=== PATIENT | female | born 1945 | race Caucasian/White ===

== ENCOUNTER 2019-12-26 17:39 | Inpatient (IN) ==
[2019-12-26] MEDS ORDERED: DUONEB (A & A) INH ONE (18:21)
[2019-12-26 18:57] LABS: BASO# 0.04 X1000 (0.0-0.2); BASO% 0.4 % (0.0-0.8); EOS# 1.53 X1000 (0.0-0.7); EOS% 17.2 % (0.0-10.0); HEMATOCRIT 30.7 % (37.0-47.0); HEMOGLOBIN 9.4 g/dL (12.0-16.0); IMM GRAN# 0.04 X1000 (0.0-0.04); IMM GRAN% 0.4 % (0.0-0.5); LYMPH# 1.84 X1000 (1.2-3.4); LYMPH% 20.6 % (20.5-51.1); MCH 29.2 PG (27-31); MCHC 30.6 g/dL (33-37); MCV 95.3 FL (81-99); MONO# 0.71 X1000 (0.11-0.59); NEUT# 4.76 X1000 (1.4-6.5); NEUT% 53.4 % (42.2-75.2); PLT 349 X1000 (130-400); RBC 3.22 XMIL (4.2-5.4); RDW 13.9 % (11.5-14.5); WBC 8.92 X1000 (4.8-10.8)
[2019-12-26 19:03] LABS: ALB/GLOB RATIO 1.5; ALBUMIN 3.3 g/dL (3.5-5.0); CALCIUM 9.3 mg/dL (8.8-10.2); POTASSIUM 4.2 mmol/L (3.5-5.1); TOTAL BILIRUBIN 0.33 mg/dL (0.20-1.00); TOTAL PROTEIN 5.5 g/dL (6.3-8.3)
--- NOTE | 2019-12-26 19:03 | PROVIDER DOCUMENTATION ---
This chart was entered by Laura Lai Scribe, acting as scribe for Azar Mack MD. HPI-Female /OB/Breast - General Source: reports: patient - History of Present Illness-Female /OB Does patient report she is ?: No Location of complaint: reports: urethral (LLQ of abd), other Quality of Pain: reports: sharp Severity in ED: reports: mild Onset/Duration: reports: 2 days ago Timing: reports: still present Context/Activities at Onset: reports: other (hospitalized at [facility] recently) Vaginal Symptoms: reports: no symptoms Vaginal Bleeding Amount: None Urinary Symptoms: reports: anuria Related Symptoms: reports: no symptoms Leakage of Fluid: none Sexual intercourse history: reports: Not Active Contraception: reports: none Modifying Factors: improves with: nothing Associated Symptoms: reports: denies symptoms Similar Symptoms Previously?: Yes Recently seen or treated by another doctor?: Yes <Azar Mack - Last Filed: 12/26/19 19:03> <Anupama Wasserman - Last Filed: 12/26/19 20:28> - General Chief Complaint: Flank Pain Stated Complaint: NO URINATION x2 DAYS KIDNEY STONE Time Seen by Provider: 12/26/19 18:08 Allergies/Adverse Reactions: Patient Allergies Allergy/AdvReac Type Severity Reaction Status Date / Time No Known Allergies Allergy Verified 12/26/19 18:47 Home Medications: Home Medication List Medication Instructions Recorded Confirmed Last Taken Type Alprazolam [Xanax] 0.25 mg PO QHS 12/28/15 12/26/19 11/07/17 16:00 History Levothyroxine [Synthroid] 75 microgm PO DAILY 12/28/15 12/26/19 11/08/17 08:00 History Albuterol Sulfate [Proair Hfa] 8.5 gm IH TID 11/07/17 12/26/19 11/07/17 16:00 History Ipratropium/Albuterol Sulfate 3 ml INHALATION Q4H 12/26/19 12/26/19 12/26/19 14:30 History [Iprat-Albut 0.5-3(2.5) mg/3 ml] Midodrine HCl 2.5 mg PO DAILY 12/26/19 12/26/19 Unknown History Sertraline [Zoloft] 25 mg PO DAILY 12/26/19 12/26/19 Unknown History Sucralfate [Carafate] 1 gm PO TID 12/26/19 12/26/19 Unknown History - History of Present Illness-Female /OB Nature of Presenting Problem: Pt is a 74 yof who presents to the ED with a cc of anuria for 2 days. Pt reports that she seen her Dr. Littlejohn and was dx with a 6 mm kidney stone in her L urethra. Pt reports mild pain in LLQ. Denies any other complaints. (Azar Mack) Review of Systems - Adult - REVIEW OF SYSTEMS - ADULT Constitutional: reports: no symptoms reported Eyes: reports: no symptoms reported Ears, Nose, Mouth & Throat: reports: no symptoms reported Cardiovascular: reports: no symptoms reported Respiratory: reports: see HPI, other (Pt reports a prolonged stay at [facility] for COPD, Pt reports that she was intubated and went to rehab. Has been back with family for 1 week.) Gastrointestinal: reports: see HPI, abdominal pain (LLQ, mild pain) Genitourinary: reports: see HPI, other (anuria, Dr. Littlejohn ordered CT. CT results show a 6 mm stone in the L urethra) Musculoskeletal: reports: no symptoms reported Integumentary: reports: no symptoms reported Neurological: reports: no symptoms reported Psychiatric: reports: no symptoms reported Endocrine: reports: no symptoms reported Hematologic/Lymphatic: reports: no symptoms reported Allergic/Immunologic: reports: no symptoms reported All Other Systems: Reviewed and Negative <Azar Mack - Last Filed: 12/26/19 19:03> Past History - Adult - PAST MEDICAL HISTORY-ADULT Review of Records: reports: Old Records Reviewed, Nursing Assessment Review, Medications Reviewed, Social history reviewed & non-contributory. Major Childhood Illnesses: reports: denies history Cardiovascular: reports: denies history Respiratory: reports: denies history Gastrointestinal: reports: denies history Obstetrical/Gynecological: reports: denies history Genitourinary: reports: denies history Musculoskeletal: reports: denies history Neurological: reports: denies history Endocrine/Immune: reports: denies history Other Conditions: reports: denies history - SOCIAL HISTORY Smoking: non-smoker Substance Use: denies Living Situation: family <Azar Mack - Last Filed: 12/26/19 19:03> Physical Exam-General - PHYSICAL EXAM-ADULT Initial Vital Signs Reviewed: No - CONSTITUTIONAL General Appearance: alert, no apparent distress, other (frail) - EYES Eyes: pink conjunctivae - HEAD, EARS, NOSE, MOUTH & THROAT HENMT: normocephalic/atraumatic, moist mucous membranes - NECK Neck: normal inspection - RESPIRATORY Respiratory: chest non-tender, wheezing (aspiratory, bilateral bases). negative: lungs clear - CARDIOVASCULAR Cardiovascular: normal peripheral pulses, regular rate, rhythm, no edema, no gallop, no JVD, no murmur. negative: diastolic murmur, gallop/S3, gallop/S4 - GASTROINTESTINAL (ABDOMEN) Abdominal Exam: normal bowel sounds, soft, tenderness (LLQ). negative: guarding, rebound - MUSCULOSKELETAL Back Exam: normal inspection, no CVA tenderness, no vertebral tenderness Extremity: normal range of motion, non-tender, normal inspection. negative: pedal edema - SKIN Integumentary: normal color, normal turgor, warm/dry, other (frail) - NEUROLOGIC Neurologic: grossly normal - PSYCHIATRIC Psych/Mental Status: normal mood/affect, normal thought content, normal thought process, oriented x 3 <Azar Mack - Last Filed: 12/26/19 19:03> Progress - PLAN OF CARE/RESULTS Result Diagrams: 12/26/19 18:35 - EKG 1 Time of EKG reading by physician:: 18:52 EKG Read and Signed by:: Azar Mack EKG Interpretation (*Must complete 3 of following elements*): Abnormal Rate: 86 Rhythm: NSR [place]: normal QRS: other (low voltage) ST Wave: non-specific ST changes (nonspecific ST and T wave abnormality) Prior EKG Comparison: no prior EKG <Azar Mack - Last Filed: 12/26/19 19:03> - PLAN OF CARE/RESULTS Result Diagrams: 12/26/19 18:35 12/26/19 18:35 - REASSESSMENT Reassessment #1 Time Reassessed: 20:08 Status: other (d/w Dr Valerio at bedside, recommended admission to hospitalist and he will do surgery tomorrow. He addressed the anesthesia concerns of the family.) - CONSULTS/PCP/HOSPITALIST Notification #1 *Consult/PCP/Hospitalist*: DR WALTERS Time Discussed: 20:10 Consult Disposition: Admit <Anupama WassermanAndrey - Last Filed: 12/26/19 20:28> - PLAN OF CARE/RESULTS Progress/Plan/Lab Results: Vital Signs - 8 hr 12/26/19 17:42 12/26/19 18:37 Temperature 97.2 F L Pulse Rate 90 90 Respiratory Rate 18 18 Blood Pressure 140/082 O2 Sat by Pulse Oximetry 99 Laboratory Results - last 24 hr 12/26/19 12/26/19 12/26/19 18:35 18:35 18:35 WBC 8.92 RBC 3.22 L Hgb 9.4 L Hct 30.7 L MCV 95.3 MCH 29.2 MCHC 30.6 L RDW Std Deviation 13.9 Plt Count 349 MPV 9.0 Immature Gran % (Auto) 0.4 Neut % (Auto) 53.4 Lymph % (Auto) 20.6 Person % (Auto) 8.0 Eos % (Auto) 17.2 H Baso % (Auto) 0.4 Immature Gran # (Auto) 0.04 Neut # (Auto) 4.76 Lymph # (Auto) 1.84 Person # (Auto) 0.71 H Eos # (Auto) 1.53 H Baso # (Auto) 0.04 Sodium 134 L Potassium 4.2 Chloride 96 L Carbon Dioxide 22 L Anion Gap 16 BUN 36 H Creatinine 5.8 H Estimated GFR/1.73 m2 7 BUN/Creatinine Ratio 6 Glucose 85 Calculated Osmolality 276 Calcium 9.3 Total Bilirubin 0.33 AST 17 ALT 14 Alkaline Phosphatase 80 Troponin T High Sens 81 H Total Protein 5.5 L Albumin 3.3 L Globulin 2.2 Albumin/Globulin Ratio 1.5 Orders Category Date Time Status Consent for Surgery DIRECTED Care 12/26/19 19:46 Active Saline Loc NOW Care 12/26/19 18:09 Active CBC WITH ELECTRONIC DIFF [HEME] Stat Lab 12/26/19 18:35 Completed COMPREHENSIVE METABOLIC PANEL [CHEM] Stat Lab 12/26/19 18:35 Completed TROPONIN T HIGH SENSITIVITY Stat Lab 12/26/19 18:35 Completed URINALYSIS W/POSS RFLX CULT [URINALYSIS] Stat Lab 12/26/19 18:10 Uncollected Albuterol 2.5MG/Ipratrop 0.5MG [Duoneb (A & A)] Med 12/26/19 18:21 Discontinued 3 ml INH NOW ONE Aerosol Treatments Routine Oth 12/26/19 18:21 Completed Aerosol Treatments Stat Oth 12/26/19 18:21 Completed EKG [EKG] Stat Ther 12/26/19 18:09 Ordered Departure <Azar Mack - Last Filed: 12/26/19 19:03> - Departure Date of Disposition Decision: 12/26/19 Time of Disposition Decision: 20:10 Certified Medical Emergency: Emergent - Critical Care Note This patient required my direct & personal management of CC.: No <Anupama Wasserman - Last Filed: 12/26/19 20:28> - Departure DIAGNOSIS: Left ureteral calculus, Renal failure, acute Disposition: ADMITTED INPATIENT 09 Condition: Fair Referrals and Follow-Ups: Catrachito Howell MD [Primary Care Provider] - Attestation - Physician/ IRMA Attestation Patient care was provided by Advanced Practice Provider:: No The physician spent face to face time with patient:: Yes Advanced Practice Provider documentation review:: Supervising physician onsite and consulted in the evaluation and care of this patient. The physician did have a face to face encounter with the patient. <Azar Mack - Last Filed: 12/26/19 19:03> - Physician/ IRMA Attestation Patient care was provided by Advanced Practice Provider:: No The physician spent face to face time with patient:: Yes Advanced Practice Provider documentation review:: Supervising physician onsite and consulted in the evaluation and care of this patient. The physician did have a face to face encounter with the patient. <Anupama Wasserman - Last Filed: 12/26/19 20:28> This chart was documented by the indicated scribe, (Laura Lai Scribe) and accurately reflects the services I performed and decisions made by me, Azar Mack MD, as attested by the provider's signature.
[2019-12-26 19:12] LABS: CREATININE 5.8 mg/dL (0.5-0.9)
[2019-12-26] MEDS ORDERED: ZOFRAN IV ONE (20:31)
[2019-12-26 20:43] LABS: URINE SOURCE CLEAN CATCH
[2019-12-26 20:47] LABS: BILIRUBIN URINE NEGATIVE (NEGATIVE); BLOOD URINE MODERATE (NEGATIVE); COLOR YELLOW; GLUCOSE URINE NEGATIVE (NEGATIVE); KETONE URINE NEGATIVE (NEGATIVE); LEUKOCYTES URINE SMALL (NEGATIVE); NITRITE URINE NEGATIVE (NEGATIVE); PH URINE 5.5; PROTEIN URINE NEGATIVE (NEGATIVE); SP GRAVITY URINE 1.006; TURBIDITY URINE HAZY (CLEAR); UR EPITHELIAL CELLS >10 /HPF (<10); URINE BACTERIA NEGATIVE /HPF; URINE RBC 20-40 /HPF (<10); UROBILINOGEN URINE NORMAL (NORMAL)
[2019-12-26] MEDS ORDERED: DUONEB (A & A) INH PRN (21:25)
[2019-12-26] MEDS ORDERED: ZOFRAN IV PRN (21:27)
[2019-12-26] MEDS ORDERED: TYLENOL PO PRN (21:27)
[2019-12-26] MEDS ORDERED: NS 1,000 ML IV SCH ×2 (21:30→21:45)
[2019-12-26] MEDS ORDERED: MILK OF MAGNESIA PO ONE (22:06)
[2019-12-26] MEDS ORDERED: MORPHINE IV PRN (22:07)
[2019-12-26 22:08] LABS: INR 1.06; PROTIME 13.9 Seconds (11.0-16.0)
--- NOTE | 2019-12-26 22:09 | EKG Report ---
Test Performed on : 12/26/2019 6:44:02 PM Test Reason : FLANK PAIN Blood Pressure : / mmHG Vent. Rate : 086 BPM Atrial Rate : 086 BPM P-R Int : 136 ms QRS Dur : 084 ms QT Int : 374 ms P-R-T Axes : 039 -05 039 degrees QTc Int : 447 ms Normal sinus rhythm. Low voltage QRS Nonspecific ST and T wave abnormality Abnormal ECG No previous ECGs available Unconfirmed Result
[2019-12-26] MEDS ORDERED: HEPARIN IV ONE ×2 (22:26→23:30)
[2019-12-26] MEDS ORDERED: HEPARIN IV PRN (22:26)
[2019-12-26] MEDS ORDERED: HEPARIN SUBQ ONE (22:30)
[2019-12-26] MEDS ORDERED: HEPARIN 25,000 UNITS/D5W 25,000 UNIT/250 ML IV.SOLN IV SCH (22:30)
[2019-12-26] MEDS: ROCEPHIN 1 GM in NS 50 ML IV SCH (22:36)
[2019-12-26] MEDS ORDERED: NS 500 ML IV ONE (22:54)
[2019-12-26] MEDS: DUONEB (A & A) INH SCH (23:18)
[2019-12-27] MEDS: DUONEB (A & A) INH SCH ×6 (03:12→23:36)
[2019-12-27 05:48] LABS: BASO# 0.03 X1000 (0.0-0.2); BASO% 0.4 % (0.0-0.8); EOS# 1.31 X1000 (0.0-0.7); EOS% 16.1 % (0.0-10.0); HEMATOCRIT 27.4 % (37.0-47.0); HEMOGLOBIN 8.3 g/dL (12.0-16.0); IMM GRAN# 0.03 X1000 (0.0-0.04); IMM GRAN% 0.4 % (0.0-0.5); LYMPH# 1.54 X1000 (1.2-3.4); LYMPH% 18.9 % (20.5-51.1); MCHC 30.3 g/dL (33-37); MCV 95.8 FL (81-99); MONO# 0.62 X1000 (0.11-0.59); MONO% 7.6 % (1.7-9.3); MPV 9.1 FL (7.4-10.4); NEUT# 4.62 X1000 (1.4-6.5); NEUT% 56.6 % (42.2-75.2); PLT 355 X1000 (130-400); RBC 2.86 XMIL (4.2-5.4); RDW 13.8 % (11.5-14.5); WBC 8.15 X1000 (4.8-10.8)
[2019-12-27 06:16] LABS: CALCIUM 8.7 mg/dL (8.8-10.2); MAGNESIUM 2.5 mg/dL (1.5-2.7); POTASSIUM 4.1 mmol/L (3.5-5.1)
[2019-12-27] MEDS: SYNTHROID PO SCH (06:35)
[2019-12-27 06:46] LABS: INR 1.15; PROTIME 14.9 Seconds (11.0-16.0)
[2019-12-27 06:47] LABS: CREATININE 6.3 mg/dL (0.5-0.9)
--- NOTE | 2019-12-27 07:42 | CONSULTATION ---
DATE OF CONSULTATION: 12/26/2019 CHIEF COMPLAINT: Decreased urinary output and obstructing left ureteral stone. HISTORY OF PRESENT ILLNESS: Ms. Garcia is a 74-year-old with history of renal cell carcinoma of the right kidney status post right nephrectomy by Dr. Jordan, who has had a history of kidney stones and has been followed in the office. Most recently was seen in the office in July with a KUB which showed a stone within the left kidney itself. The patient presented to the emergency room tonight complaining of inability urinate for approximately 3 days. She states she has not had much urinary output over that time period. She feels like she has only been able to void small volumes and only was able to void on arrival to the emergency room for the first time in 2 days. She denies any fevers or chills. She was recently admitted at [facility] regarding COPD exacerbation and spent 1 month in rehabilitation afterwards, and just [facility]. She denies any chest pain today, but she feels like her COPD is worsening and feels that she has some abdominal and lower extremity swelling. She denies any flank or abdominal pain today. She does have some lower pelvic pain that she associates with taking magnesium for constipation. The patient had a CT scan performed today by Dr. Helton's office, which showed a 6 mm left ureteral stone with hydronephrosis. Urology was called and recommend that she come to the hospital for evaluation due to anuria and obstructing stone in a solitary kidney. The patient has had prior kidney stone surgeries in the past with extracorporeal shock lithotripsy. She has a solitary kidney after nephrectomy by Dr. Jordan for renal cell carcinoma. PAST MEDICAL HISTORY: 1. COPD with chronic respiratory failure on home oxygen. 2. Gastroesophageal reflux disease. 3. Anxiety. 4. Arthritis. 5. WPW Syndrome. 6. History of right renal cell carcinoma. 7. Congestive Heart Failure. 8. Nephrolithiasis PAST SURGICAL HISTORY: 1. Heart catheterization with stent placement. 2. Back surgery. 3. Right nephrectomy. 4. Parathyroidectomy 5. Extracorporeal shockwave lithotripsy. 6. Heart Ablation ALLERGIES: No known drug allergies. HOME MEDICATIONS: 1. Xanax. 2. Synthroid. 3. Albuterol. 4. Midodrine. 5. Ipratropium. 6. Carafate. 7. Sertraline. SOCIAL HISTORY: Nonsmoker. Denies illicit drug use. FAMILY HISTORY: Denies family history of malignancy. PHYSICAL EXAMINATION: Vital Signs: Temperature 97.2, heart rate 90, blood pressure 140/82, oxygen saturation 90% on nasal cannula. General: No acute distress. Resting comfortably in bed. Alert and oriented x3. Respiratory: Increased work of breathing which is stable with rales. Cardiovascular: Regular rate and rhythm. HEENT: Normocephalic, atraumatic. Pupils equal, round, reactive to light. Moist mucous membranes. Neck: Trachea midline. Abdomen: Soft, nontender. Slight tenderness in the left lower quadrant. : No suprapubic tenderness. No CVA tenderness. Musculoskeletal: Moving all extremities. Skin: No obvious skin lesions or rashes. Neurologic: Gross motor and sensory intact. LABS: White blood cell count 8.9, hemoglobin 9.4, hematocrit 30.7, platelets 349. Sodium 134, potassium 4.2, chloride 96, bicarbonate 22. BUN 36, creatinine 5.8, glucose 85, total protein 5.5, albumin 3.3. X-RAYS: CT scan images reviewed, which showed an obstructing 6 mm stone present in the mid ureter with associated hydronephrosis with a decompressed bladder. The patient has a solitary kidney with a surgically absent right kidney. ASSESSMENT AND PLAN: Ms. Garcia is a 74-year-old, with COPD, WPW syndrome status post cardiac ablation, history of right renal cell carcinoma, recurrent nephrolithiasis, anxiety, arthritis, and GERD who presents in consultation regarding renal obstruction with solitary kidney from a ureteral stone. The patient has a 6 mm stone in the proximal to mid ureter. The patient had a CT scan performed by Dr. Helton which showed stone within the mid to proximal ureter. The patient has been having decreased urinary output for several days now with anuria for past 2. She states she has not peed in over 48 hours. The patient's renal function has deteriorated with a creatinine of 5.8 with a normal around 1.8 to 2.1. I had a long discussion with the patient and her family today at bedside, and discussed obstruction with solitary kidney with a stone. I had a long discussion about treatment options including ureteroscopy and removal versus ureteral stenting. The patient is concerned about undergoing anesthesia after she had a recent cardiac event at [facility] where she was unable to tolerate anesthesia, had to be intubated and had issues with her heart. I reassured them that unfortunately this could happen with any type of procedure. However, with her chronic obstructive pulmonary disease, this alone should not preclude her from undergoing anesthesia. I told her that there are several different ways to perform anesthesia, including laryngeal mask airway, endotracheal intubation and spinal. Spinal requires her to lay flat to perform the procedure. I am not sure if she would be able to adequately tolerate this for much time. I told her that we could try to place a stent. The patient would liked 1 solitary procedure to try to get rid of the stone. I told her I would try to do this. However, due to her anatomy, it may be difficult to adequately perform the procedure if she is not able to lay somewhat flat. I had a long discussion with her and her family regarding the risk of the procedure, and they would like to proceed. We will plan to perform this tomorrow due to her eating lunch around 1430. We will coordinate with Anesthesia and Dr. Kaufman appropriately. Will continue to monitor. cc: Moe Vargas MD [facility]
--- NOTE | 2019-12-27 08:04 | HISTORY AND PHYSICAL ---
CHIEF COMPLAINT: Hematuria and left lower quadrant pain. SOURCE OF HISTORY: Patient and his her daughter at bedside; both of them are poor historians. HISTORY OF PRESENT ILLNESS: Ms. Garcia is a 74-year-old lady with a complicated past medical history including COPD with multiple exacerbations, nephrolithiasis, right-sided renal cell carcinoma status post nephrectomy and resultant chronic kidney disease stage 4, suspected right internal jugular DVT, who has been off anticoagulation for at least 10 days. She has chronic hypoxic respiratory failure on home oxygen and who comes in with chief complaint of right lower quadrant abdominal pain and hematuria of about 7 to 10 days' duration. The patient had a complicated course with COPD exacerbation requiring intubation, and she had cardiac arrest at the time of intubation in October 2019 at the [facility]. She had another episode of COPD exacerbation when she was admitted to [facility]. After her [facility] admission, she went home and lived with her sister and she was apparently started on hospice care. Her anticoagulation was stopped because of hematuria by hospice team about 7 to 10 days ago; however, the patient's hematuria did not get better. She was taken off hospice services. Her area loss prevention manager, Dr. Helton, and urologist, Dr. Jordan, were consulted. The Patient was advised to come to the emergency room. In the emergency room, patient was found to be hemodynamically stable. She had acute kidney injury with creatinine of 5.8, which had increased from her baseline 1.8. Her CT scan of the abdomen and pelvis had detected left-sided proximal ureteric stone, so hospitalist team was consulted for further management. At the time of my evaluation, the patient denies any chest pain, shortness of breath or cough. Her abdominal pain is well controlled. Her latest urine output did not have any hematuria. She states she does not want to be on hospice anymore. REVIEW OF SYSTEMS: 1. Negative for headache, blurring of vision. 2. Negative for chest pain or shortness of breath. 3. Positive for mild wheezing. 4. Negative for nausea or vomiting. 5. Positive for constipation. 6. Positive for abdominal pain. 7. Positive for hematuria. PAST MEDICAL HISTORY: 1. COPD due to secondhand smoke. 2. Chronic hypoxic respiratory failure on home oxygen. 3. Multiple COPD exacerbations. 4. Right-sided renal cell carcinoma status post nephrectomy. 5. Recurrent episodes of nephrolithiasis. 6. Right-sided neck venous thrombosis associated with dialysis catheter. The patient was started on dialysis briefly during her stay at [facility] in October. 7. History of congestive heart failure with ejection fraction 30% when she was admitted at [facility]. 8. History of WPW syndrome status post ablation. 9. History of diaphragmatic hernia. 10. Hypotension on home midodrine. PAST SURGICAL HISTORY: 1. Back surgery. 2. Parathyroidectomy. 3. Tubal ligation. 4. Right nephrectomy for renal cell carcinoma in 2015. 5. WPW syndrome, status post ablation in 1994. PERSONAL HISTORY: Never smoker, never drinker. No recreational substance use. PHYSICAL EXAMINATION: VITAL SIGNS: Temperature 97.2 degrees, pulse 90, respiratory 18, blood pressure 140/82 saturating 99% on room air. GENERAL: Not in acute distress. HEENT: Oral cavity is moist. LUNGS: Air entry bilaterally equal. No rhonchi or crackles. She only has mild end-expiratory wheezes. CARDIOVASCULAR: S1, S2 normal. No murmur, rub, or gallop. ABDOMEN: Soft, nontender. EXTREMITY: Mild lower extremity edema. Left upper extremity examination suggests she does have about a 15 x 2 cm wound on the left distal forearm, which she got in October 2019. NEUROLOGIC: She is alert oriented x3. She has hearing impairment. LABS: Suggestive of WBC of 8.9, hemoglobin 9.4, platelet 349,000. Coagulations are pending. Sodium 134, chloride 96, BUN 36, creatinine 5.8. She does have pyuria with WBC 10 to 20. Microbiology; urine culture is pending. IMAGIN. Renal CT performed at outside hospital had 6 mm stone in the upper to mid left ureter with mild hydronephrosis with other nonobstructing left renal stones. 2. Prominence of pancreatic head versus adjacent enlargement of nodes. 3. Trace right pleural effusion. 4. Right nephrectomy. 5. Fatty infiltration of liver, constipation, and colonic diverticulosis. 6. Electrocardiogram appears to have normal sinus rhythm and nonspecific ST-T abnormality. ASSESSMENT AND PLAN: 1. Acute kidney injury on chronic kidney disease stage 4 with hematuria, likely due to obstructing left proximal ureteric stone leading to hydronephrosis. Her hematuria seems to be improving. I will give her gentle intravenous fluids and intravenous antibiotics. Urology has been consulted and is planning a surgical procedure where likely on 12/27/2019. Her EKG has normal sinus rhythm. Coagulation studies are pending. I will follow up with [facility] tomorrow for hyponatremia and hypochloremia. 2. History of cardiac arrest at the time of intubation and congestive heart failure with ejection fraction of 25% to 30% in October 2019, according to history. Records have been requested from [facility]. EKG does not have ST-T changes. I will only give her gentle intravenous fluids. Follow up with echocardiogram. Currently, she does not appear to be in any acute exacerbation. 3. Reported history of right-sided neck jugular deep vein thrombosis. The patient has been on Eliquis which she stopped at least 7 days ago, as per the suggestions from hospice team. It was a provoked deep vein thrombosis associated with right neck dialysis catheter when she was at [facility]. The [facility] Records are requested. I will get ultrasound of the right neck to evaluate it better. I will keep her on prophylactic dose until I get further data. Considering her hematuria, anticoagulation is going to be challenging. 4. Left hand wound. According to history, she developed it when she went to [facility] in October. Wound Care has been ordered. 5. History of chronic obstructive pulmonary disease and chronic hypoxic respiratory failure due to secondhand smoke. Continue albuterol ipratropium nebulization every 4 hours. She has only mild wheezes and does not appear to be in acute exacerbation. 6. Continue levothyroxine for hypothyroidism, midodrine for her hypotension, which is her home medication, sertraline for anxiety, morphine as needed for pain, MiraLAX for constipation along with magnesium hydroxide. DISPOSITION: I will monitor patient on the telemetry floor and appreciate further Urology recommendation. Her code status is full for the surgery, and she would decide about further code status according to her course. Plan of care discussed with the patient and her daughter at bedside. Their questions have been answered. cc: Viktor Jones MD
[2019-12-27 09:56] LABS: ALLEN TEST YES; BE -2.2 mmoll (-3.0-3.0); BLOOD TYPE ARTERIAL; HCO3-(ACT) 23.2 mmoll (20.0-26.0); METHB 1.8 % (0.0-1.5); O2(CT) 12.7 mL/dL (15.0-23.0); O2HB 95.9 % (95.0-99.0); PCO2(98.6) 36 mmHg (35-45); PO2(98.6) 100 mmHg (60-100); SAMPLE BLOOD; SAO2 99.7 % (95.0-100.0); THB 9.3 g/dL (11.5-17.4)
[2019-12-27 09:58] LABS: MODALITY CANNULA
[2019-12-27] MEDS ORDERED: VERSED ONE (10:08)
[2019-12-27] MEDS ORDERED: FENTANYL ONE (10:09)
[2019-12-27] MEDS ORDERED: DECADRON ONE (10:16)
[2019-12-27] MEDS ORDERED: ZOFRAN ONE ×2 (10:16→14:37)
[2019-12-27] MEDS: MIRALAX PO SCH (12:55)
[2019-12-27] MEDS: ZOLOFT PO SCH (12:55)
[2019-12-27] MEDS: PROAMATINE PO SCH (12:55)
--- NOTE | 2019-12-27 13:09 | PROGRESS NOTE ---
DATE: 12/26/2019 SUBJECTIVE: Patient was admitted yesterday due to anuria and obstructive uropathy and solitary kidney with left ureteral stone. The patient denies significant pain. She states that she may have went to the bathroom 1 time overnight, which was small volume. She denies any dysuria or hematuria. She is NPO in preparation for surgery this morning. PHYSICAL EXAMINATION: Vital Signs: Temperature 98.4 degrees heart rate 98, blood pressure 116/60, oxygenation 100% on room air. General: No acute distress. Resting comfortably in bed. Alert and oriented x3. Respiratory: Good respiratory effort without audible wheezing. Abdomen: Soft, nontender, nondistended. : No suprapubic tenderness. No CVA tenderness. LABS: White blood cell count 8.2, hemoglobin 8.3, hematocrit 27.4, platelets 355,000. PTT 153.4. Sodium 133, potassium 4.1, chloride 99, bicarb 20, BUN 38, creatinine 6.3, glucose 84. Urinalysis shows moderate blood, small amount of leukocytes, greater than 10 epithelial cells, negative bacteria. ASSESSMENT AND PLAN: Ms. 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 Urology was consulted by her family while at home and I recommended coming to the hospital due to concern over a solitary kidney with obstructing stone. I talked extensively with family last night regarding procedure to perform cystoscopy and attempted left ureteroscopy, laser lithotripsy, stone extraction, and left ureteral stenting. The patient has had prior kidney stones in the past that have been treated by Dr. Jordan with extracorporeal shock lithotripsy. I think patient clinically is stable. I told her that her creatinine continues to worsen and concerns arise that she would be unable to pass the stone spontaneously and would need an anesthetic to at least place a stent to bypass the stone. I told her that it may be difficult if the stone was significantly impacted. We would attempt to try to remove the stone at the same time today due to concern over multiple anesthetics for the patient. We will plan for cystoscopy, left ureteroscopy, lithotripsy, stone basket extraction of left ureteral stone this morning. I would place a left ureteral stent to optimize renal function. The patient has been NPO and will go to the operating room later today. Have coordinate her care with [facility], Dr. Kaufman. cc: Moe Vargas MD [facility]
[2019-12-27] MEDS: D5 1/2 NS 1,000 ML IV SCH (13:18)
[2019-12-27] MEDS ORDERED: EPHEDRINE ONE (14:09)
[2019-12-27] MEDS ORDERED: NORCURON ONE (14:33)
[2019-12-27] MEDS ORDERED: STERILE WATER INJ. ONE (14:33)
[2019-12-27] MEDS ORDERED: ROBINUL ONE (14:37)
[2019-12-27] MEDS ORDERED: NEOSTIGMINE ONE (14:37)
--- NOTE | 2019-12-27 15:03 | Diag Imaging Result Doc PS360 ---
EXAM: FLUROSCOPY CYSTO HISTORY: RT STENT PLACEMENT TECHNIQUE: Five views COMPARISON: None. FINDINGS: First film shows a wire in the left ureter. Follow-up films show a stent placed over the wire with the right removed. IMPRESSION: Left ureteral stent placed. Electronically signed by Carl Mccartney 12/27/2019 3:00 PM
--- NOTE | 2019-12-27 15:26 | Diag Imaging Result Doc PS360 ---
EXAM: US ABDOMEN-COMPLETE HISTORY: ? pancreatic or duodenal abnormality on rcnt CT TECHNIQUE: Abdominal ultrasound COMPARISON: CT from 12/26/2019 FINDINGS: There is a 1.7 x 3.1 cm hypoechoic area adjacent to or within the pancreatic head. The body and tail of the pancreas are obscured. Normal inferior vena cava. No aortic aneurysm. Moderate atherosclerosis. There is fatty infiltration of the liver. The common bile duct measures 6 mm. Normal gallbladder. Normal left kidney. The right kidney is not present. Normal spleen. No ascites. IMPRESSION: 1.There appears to be a mass in the pancreatic head. An ERCP is recommended. 2.Right nephrectomy 3.Fatty infiltration of the liver Electronically signed by Carl Mccartney 12/27/2019 3:24 PM
--- NOTE | 2019-12-27 16:17 | PROGRESS NOTE ---
DATE: 12/27/2019 INTERVAL HISTORY: The patient currently n.p.o. for procedure with urology later today. Denies current abdominal pain, dyspnea, chest pain center. Saturating well on her home 3 L of oxygen. REVIEW OF SYSTEMS: Twelve point review of systems negative except as per interval history. LABS: WBC 8.1, hemoglobin 8.3, hematocrit 27.4, platelets 355,000. ABG with pH 7.4, pCO2 36, PO2 100, sodium 133, potassium 4.1, BUN 38, creatinine 6.3. VITALS: T-max 98.4 degrees, pulse 93, respirations 14, blood pressure 134/74, O2 saturation 99% on 3 L by nasal cannula. PHYSICAL EXAMINATION: General: No acute distress. Vitals: As above. HEENT: Normocephalic, atraumatic. Moist mucous membranes. No cervical adenopathy. Cardiovascular: Regular rate and rhythm. Abdomen: Soft, nontender, nondistended. Bowel sounds positive. Extremities: Peripheral pulses intact. No clubbing or cyanosis. Trace lower extremity edema in bilateral lower legs. Left distal forearm wound is stable. Neurologic: Cranial nerves grossly intact. No focal deficits identified. Psychiatric: Normal mood and affect. Awake, alert, oriented x3. ASSESSMENT AND PLAN: 1. Acute kidney injury on chronic kidney disease 4. Baseline creatinine of approximately 2 up to 6.3 this morning. The patient with only single kidney. Recent CT showing obstructing stone with mild hydronephrosis. Going for urologic procedure sometime today. We will see how she does afterwards and monitor. Consulting Nephrology. Awaiting diuresis for now. 2. Chronic systolic congestive heart failure. Last known EF 25 to 30. Repeat echo pending. 3. Recent hospitalization at [facility] with cardiac arrest aware. 4. Chronic obstructive pulmonary disease and chronic hypoxic respiratory failure, stable on her home 3 L. Monitor. 5. History of recent right internal jugular and left upper extremity clots. Records from [facility] reviewed. Clots in the left arm appear to have been superficial. Right IJ clot provoked by the line. The patient was on blood thinners for approximately 7 weeks before her Eliquis was stopped not quite a week ago. On heparin initially here but off now for procedure. We will monitor blood counts post procedure. If they remain stable, we will likely restart anticoagulation tomorrow. 6. Chronic hypotension. Continue home midodrine and monitor. 7. Fatty liver, aware. 8. Unclear possible pancreatic abnormality. Recent CT showing possible prominence of the pancreatic head. May be nothing but we will get ultrasound to further clarify. Left hand wound. Continue local wound care. 9. Hypothyroidism. Continue home Synthroid. 10. History of Zipdn-[id number]-Trawc status post ablation, aware.
[2019-12-27] MEDS: XANAX PO SCH (20:52)
[2019-12-27] MEDS: ROCEPHIN 1 GM in NS 50 ML IV SCH (20:53)
[2019-12-27] MEDS ORDERED: HEPARIN SUBQ SCH (21:30)
--- NOTE | 2019-12-27 21:57 | OPERATIVE NOTE ---
PROCEDURE DATE: 12/27/2019 PREOPERATIVE DIAGNOSES: 1. Solitary kidney. 2. Obstructive uropathy. 3. Left ureteral stone. POSTOPERATIVE DIAGNOSES: 1. Solitary kidney. 2. Obstructive uropathy. 3. Left ureteral stone. PROCEDURES PERFORMED: 1. Cystoscopy. 2. Left ureteroscopy with laser lithotripsy. 3. Stone basket extraction. 4. Left ureteral stent placement. SURGEON: Moe Vargas MD. INSURANCE TERRITORY MANAGER: None. ANESTHESIA: LMA. COMPLICATIONS: None. BLOOD LOSS: Zero. SPECIMENS REMOVED: Left ureteral stone. INDICATION FOR PROCEDURE: Ms. Garcia is a 74-year-old with a history of COPD, hypertension, congestive heart failure, and solitary kidney following nephrectomy for renal cell carcinoma, who presents in consultation regarding obstructed ureteral stone on the left side with hydronephrosis and anuria. The patient has acute on chronic kidney disease due to obstructed collecting system. She has been unable to void except for small volumes and is feeling like she is becoming fluid overloaded. The patient presented to the emergency room and was evaluated last night and was made n.p.o. in preparation for surgery today. The patient was concerned about undergoing anesthesia with her health conditions, but ultimately wanted to proceed with surgical intervention to perform cystoscopy, left ureteroscopy, lithotripsy, stone basket extraction and ureteral stent placement. Risks, benefits, and alternatives to procedures were discussed with the patient, and she elected to proceed. DESCRIPTION OF PROCEDURE: After informed consent was obtained, the patient was brought to the operating room and placed on the operating table in the supine position. The patient received preoperative antibiotics on the floor and underwent LMA placement. She was positioned to a dorsal lithotomy position and was prepped and draped in usual sterile fashion. A preoperative time-out was performed with all parties in agreement, including anesthesia, surgical and nursing staff, at which point I inserted a 21-German cystourethroscope through the urethra into the bladder. The entirety of the bladder was inspected with no diverticulum, cellules, or trabeculations. The bilateral ureteral orifices were visualized. No drainage was seen from the right ureteral orifice. From the left ureteral orifice, no obvious drainage was seen or blood. At this point a ZIPwire was then passed through the scope and up into the kidney itself. A slight amount of resistance was seen going past the stone, but the wire was seen to coil within the kidney itself. At this point, the patient's bladder was decompressed, and a semi-rigid ureteroscope was advanced through the urethra into the bladder. Once in the bladder, this was able to cannulize the left ureteral orifice and was advanced all the way up to the site of the stone in proximal ureter, which was slightly impacted. Using a 365 micron fiber, this was fragmented into several pieces and then grasped using a Helpa basket and dropped in the bladder for later retrieval. I was able to advance the ureteroscope up to the site of the impaction, and no obvious stone debris was seen. I slowly withdrew the ureteroscope, and no other significant ureteral trauma was visualized except for a small amount of edema at the previously impacted stone site. The ureteroscope was completely withdrawn, and then the ZIPwire was backloaded through the cystourethroscope, and a 6 x 24 cm left ureteral stent was advanced with good curl in the kidney, endoscopically visualized in the bladder. Good drainage was seen through and around the stent. The patient's bladder was decompressed. All stone fragments were removed, and it was filled up with a small amount of irrigation and a 16-German Toney catheter inserted through the urethra, inflated with 10 mL of sterile water and placed to gravity drainage. The patient was then awoken and was taken to recovery in stable condition. DISPOSITION: If the patient does well in recovery, we will transfer her back to the floor, if has issues with escalate her care. We will start her on a renal diet and continue to monitor for postobstructive diuresis. cc: Moe Vargas MD [facility]ITALStephany
[2019-12-28] MEDS: DUONEB (A & A) INH SCH ×6 (03:50→22:59)
[2019-12-28 06:32] LABS: BASO# 0.01 X1000 (0.0-0.2); BASO% 0.2 % (0.0-0.8); EOS# 0.01 X1000 (0.0-0.7); EOS% 0.2 % (0.0-10.0); HEMATOCRIT 28.1 % (37.0-47.0); HEMOGLOBIN 8.7 g/dL (12.0-16.0); LYMPH# 0.69 X1000 (1.2-3.4); LYMPH% 11.9 % (20.5-51.1); MCH 29.4 PG (27-31); MCV 94.9 FL (81-99); MONO# 0.44 X1000 (0.11-0.59); MONO% 7.6 % (1.7-9.3); MPV 9.8 FL (7.4-10.4); NEUT# 4.67 X1000 (1.4-6.5); NEUT% 80.1 % (42.2-75.2); PLT 347 X1000 (130-400); RBC 2.96 XMIL (4.2-5.4); WBC 5.82 X1000 (4.8-10.8)
[2019-12-28] MEDS: SYNTHROID PO SCH (06:33)
[2019-12-28] MEDS: D5 1/2 NS 1,000 ML IV SCH ×2 (06:34→23:15)
[2019-12-28 07:44] LABS: CALCIUM 9.1 mg/dL (8.8-10.2); CREATININE 3.8 mg/dL (0.5-0.9); POTASSIUM 4.6 mmol/L (3.5-5.1)
[2019-12-28] MEDS: PROAMATINE PO SCH (09:28)
[2019-12-28] MEDS: ZOLOFT PO SCH (09:28)
[2019-12-28] MEDS: MIRALAX PO SCH (09:28)
--- NOTE | 2019-12-28 10:16 | PROGRESS NOTE ---
DATE: 12/28/2019 SUBJECTIVE: Postoperative day 1 from cystoscopy, left ureteroscopy, lithotripsy, and stone basket extraction, left ureteral stent placement. The patient was admitted to the ICU overnight by anesthesia and her primary team but patient has done well. Her indwelling catheter is draining clear yellow urine with over 2700 cc recorded. She denies any flank or abdominal pain this morning. She is in good spirits and feels that she is doing quite well. She is tolerating p.o. intake without nausea and vomiting. OBJECTIVE: Vital Signs: Temperature 98.9 degrees, heart rate 102, blood pressure 110/61, oxygen saturation 98% on 2 L nasal cannula. General: No acute distress. Resting comfortably in bed. Alert and oriented x3. Respiratory: Good respiratory effort without audible wheezing or rales. Abdomen: Soft, nontender, nondistended. : No suprapubic tenderness. No CVA tenderness. Urethral catheter in place, draining clear yellow urine. Musculoskeletal: Moving all extremities. Labs: White blood cell count 5.8, hemoglobin 8.7, hematocrit 28.1, platelets 347,000. Sodium 139, potassium 4.6, chloride 104, bicarb 22, BUN 29, creatinine 3.8, glucose 112. ASSESSMENT AND PLAN: Mrs. Garcia is a 74-year-old with chronic obstructive pulmonary disease, congestive heart failure, nephrolithiasis, history of renal cell carcinoma, who presented in consultation regarding obstructed uropathy with obstructing ureteral stone. She was taken to the operating room yesterday and underwent cystoscopy, left ureteroscopy, lithotripsy, and stone basket extraction. The patient's renal function is improving, creatinine of 3.8 today from 6.3 yesterday. All vital signs seem to be relatively stable for her. She is having stable breathing on 2 L nasal cannula with oxygen saturations at 98%. Clinically, she looks like she is improving and likely could be transferred to the floor if cleared by primary team. Would plan to just keep indwelling catheter in until renal function continues to improve. Encouraged her to be ambulatory this morning. Urine culture is without growth. We will continue to monitor from a urologic standpoint. Patient is begin followed by GI medicine regarding possible pancreatic mass. Had abdominal ultrasound yesterday that showed lesion was present. Please call with questions or concerns. cc: Moe Vargas MD [facility]
[2019-12-28 12:37] LABS: AMYLASE 36 U/L (20-200); LIPASE 40 U/L (13-60)
--- NOTE | 2019-12-28 12:47 | ECHO REPORT ---
ORDER DATE: 12/26/2019 INTERPRETING PHYSICIAN: Dr. Henry Begum. ECHOCARDIOGRAPHIC MEASUREMENTS: 1. Interventricular septum: 1.2 cm. 2. Left ventricular posterior wall: 1.1 cm. 3. Diastolic diameter: 4.5 cm. 4. Left atrium: 4 cm. 5. Aorta: 3.4 cm. SUMMARY OF THE 2-DIMENSIONAL IMAGIN. Aortic valve leaflets are trileaflet. 2. Pulmonic valve was normal. 3. Tricuspid valve was normal. 4. Mitral valve was normal. 5. Mild tricuspid regurgitation. Peak velocity across the tricuspid valve was 2.5 m/sec. 6. Pulmonary artery systolic pressure of 35 mmHg. 7. There is moderate mitral regurgitation. 8. Peak velocity across the aortic valve less than 2 m/sec. There is no aortic stenosis or regurgitation. 9. Normal left ventricular cavity size. Estimated ejection fraction of 60%. 10. There is no pericardial effusion or obvious intracardiac mass or thrombus seen. 11. There is left atrial enlargement. cc: MD Viktor Bojorquez MD
[2019-12-28] MEDS: PEPCID IV SCH (16:27)
--- NOTE | 2019-12-28 17:01 | PROGRESS NOTE ---
DATE: 12/28/2019 INTERVAL HISTORY: The patient doing well, status post procedure yesterday. Still some minimal hematuria, but this appears to be clearing up. No new complaints. No other acute events. REVIEW OF SYSTEMS: Twelve point review of systems negative except as per interval history. LABS: WBC 5.8, hemoglobin 8.7, hematocrit 28.1, platelets 347,000, sodium 139, potassium 4.6, BUN 29, creatinine 3.8, glucose 112, amylase 36, lipase 40. IMAGING: Abdominal ultrasound showing likely mass in the pack pancreatic head and fatty liver disease. PHYSICAL EXAMINATION: Vital Signs: T-max 99.6 degrees, pulse 103, respirations 20, blood pressure 121/62, O2 saturation 100% on 2 L by nasal cannula. General: In no acute distress. HEENT: Normocephalic, atraumatic. Moist mucous membranes. Cardiovascular: Minimally tachycardic, but regular. No murmurs noted. Pulmonary: Clear to auscultation bilaterally. No wheezing, rales, or rhonchi. Abdomen: Soft, nontender, nondistended. Bowel sounds positive. Extremities: Peripheral pulses intact. No clubbing, cyanosis, or edema. Neurologic: Cranial nerves grossly intact. No focal deficits. Psychiatric: Normal mood and affect. Awake, alert, oriented x3. ASSESSMENT AND PLAN: 1. Acute kidney injury, single solitary kidney, obstructing stone. Patient is status post procedure by Urology for stone removal. Kidney function appears to be improving post procedure. Continue gentle hydration and monitor. Continue antibiotics with Rocephin. Stable to move out of the ICU today. 2. Likely pancreatic mass. New diagnosis for the patient. CA19-[address] Yi. He has suspects that given the lack of elevation in her LFTs, is likely not involving the duct work; therefore, ERCP would likely be low yield. Will likely need EUS biopsy at tonsillar [facility]. 3. History of provoked right IJ thrombus and left arm superficial thrombus. Will likely restart anticoagulation tomorrow if her blood counts remain stable. 4. Fatty liver noted. 5. Hyponatremia improved, monitor.
[2019-12-28] MEDS: XANAX PO SCH (20:40)
[2019-12-28] MEDS: ROCEPHIN 1 GM in NS 50 ML IV SCH (20:40)
--- NOTE | 2019-12-28 22:10 | GASTROENTEROLOGY CONSULTATION ---
DATE: 12/28/2019 ATTENDING PHYSICIAN: Lucien Alejandre MD PRIMARY CARE DOCTOR: Dr. Catrachito Howell. REASON FOR CONSULTATION: Abnormal ultrasound showing evidence of pancreatic mass. HISTORY OF PRESENT ILLNESS: Ms. Garcia is a 74-year-old female who was admitted on 12/26/2019 for hematuria and left lower quadrant pain. She was seen by urologist. The CT scan had shown a stone in the left ureter with mild hydronephrosis. She had cystoscopy, left ureteroscopy with laser lithotripsy and stone basket extraction and left ureteral stent placement by Dr. Vargas. As a part of the workup she had a ultrasound of the abdomen done which showed evidence of 1.7 to 3.1 cm hypoechoic area adjacent to or within the pancreatic head. The body and tail of pancreas are obscured. Moderate atherosclerosis. There is fatty infiltration liver. The common bile duct measuring 6 mm. Normal gallbladder. Normal left kidney. The right kidney not present. No ascites. She also had a CT scan done on 12/26/2019, which showed a 6 mm stone in the upper to mid left ureter with mild hydronephrosis, prominence to the pancreatic head versus to adjacent enlarged node or unopacified bowel loops. Further workup is recommended. Trace right pleural effusion with basilar atelectasis. Infiltrate right nephrectomy with tiny in Dr. Gregory note constipation fatty infiltration liver and colonic diverticulosis. Stool throughout the colon was noted. Gastroenterology was consulted for further management. PAST MEDICAL HISTORY: COPD, chronic hypoxic respiratory failure on home oxygen. Multiple COPD exacerbation. Recent admission requiring intubation at [facility] October 2019. Another admission at [facility]. She had been on home hospice care for severe COPD and requiring recurrent hospitalizations. Right-sided renal cell carcinoma status post nephrectomy recurrent episodes of nephrolithiasis, right-sided neck venous thrombosis associated with her dialysis catheter. Congestive heart failure with an EF of 30%, WPW syndrome status post ablation, history of diaphragmatic hernia, hypotension on home midodrine. PAST SURGICAL HISTORY: Back surgery, parathyroidectomy, tubal ligation, right nephrectomy for renal cell carcinoma 2015, WPW syndrome status ablation in 1994. PERSONAL HISTORY: Never smoker. No drinker. No recreational substance abuse. COPD secondary to second-hand smoke. REVIEW OF SYSTEMS: Denies any fevers, rigors, or chills. Does have shortness of breath, and COPD. She does have history of constipation. She does complain of some mild discomfort and discomfort in the in the periumbilical region. She had recurrent kidney stones. Injury recent cystoscopy with stone removal from the left ureter and ureteral stent placement by Dr. Vargas. Denies any neurologic complaints. FAMILY HISTORY: Noncontributory. MEDICATIONS: In the hospital include: Alprazolam, Tylenol, DuoNeb inhaler, dextrose half-normal at 60 mL per hour, Synthroid, midodrine, morphine, Zofran, MiraLAX once daily, ceftriaxone, Zoloft and normal saline 150 mL/hour. She is on renal diet. ALLERGIES: No known drug allergies.' PHYSICAL EXAMINATION: Vital Signs: Temperature 98.6, pulse 103, respiratory 20, blood pressure 121/62, saturating 100% on nasal cannula at 2 L. Body weight of 156 pounds 3.2 ounces. BMI 26 kg of weight. General: Moderately built, moderately nourished, lying in bed, in no acute distress. HEENT: Pale conjunctivae. No icterus. Nasal cannula in place. Neck: Supple. Abdomen: Soft. Discomfort in abdominal region and no rebound, no guarding. Extremities: No cyanosis or clubbing. Neuro: She is alert, awake, oriented x3. LABS: Hemoglobin and hematocrit is 8.7 and 28.1, white count of 5.82, platelet count of 347,000. Sodium 139, potassium 4.6, chloride 104, bicarb 22, anion gap 13, BUN of 29, creatinine 3.8, glucose of 112, calcium is 9.1, amylase of 36, lipase of 40. AST 17, ALT 14, alkaline phosphatase is 80, total protein 5.5, albumin of 3.3. Magnesium 2.5. Urinalysis showing moderate blood, small leukocytes, 20 to 40 red cells. Urine culture no pathogenic growth. CT scan and ultrasounds. IMPRESSION AND PLAN: 1. Acute kidney injury in the setting of obstructive uropathy. In the status post cystoscopy and stone extraction and left ureteral stent placement by Dr. Vargas on 12/27/2019. 2. Chronic systolic congestive heart failure. Ejection fraction of 25% to 30%. 3. Recent hospitalized at [facility] for chronic obstructive pulmonary disease exacerbation requiring intubation and she had cardiac arrest there during that clinical course. 4. Chronic obstructive pulmonary disease and chronic hypoxic respiratory failure. On home oxygen 3 L/minute. 5. History of recent right internal jugular and left upper extremity clots. 6. Chronic hypotension. 7. Fatty liver. 8. Abnormal ultrasound showing the possibility of a pancreatic head mass and CT scan showing evidence of prominence of the pancreatic head versus lymph nodes. 9. Hypothyroidism. 10. 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 11. Anemia. RECOMMENDATIONS: 1. We will check amylase and lipase. We will check CA-19/9. If her liver enzymes are normal, she may benefit from a CT with contrast. But I spoke with neurology and urology and primary care team. Because of renal insufficiency, she will not be given IV contrast. 2. The next step is either a endoscopic retrograde cholangiopancreatography or endoscopic ultrasound since her liver enzymes are normal, the utility of endoscopic retrograde cholangiopancreatography may be limited. She may need outpatient endoscopic ultrasound at [facility] or [facility] with Dr. Bejarano for further workup. In the meanwhile, she has constipation. We will start on MiraLAX once daily. An we will start her on Pepcid b.i.d. for gastrointestinal prophylaxis. 3. Continue to watch her blood counts and transfuse as needed. Further plan of care per the primary team. I have spoken with Dr. Alejandre and Dr. Rosa and Dr. Vargas. The above plans were discussed with the patient and nurse and all questions. Please call with any further questions. cc: MD Catrachito Leiva MD
[2019-12-29] MEDS: PEPCID IV SCH ×2 (03:18→15:26)
[2019-12-29] MEDS: DUONEB (A & A) INH SCH ×6 (03:43→23:51)
[2019-12-29] MEDS: SYNTHROID PO SCH (06:21)
--- NOTE | 2019-12-29 07:52 | PROGRESS NOTE ---
DATE: 12/29/2019 SUBJECTIVE: Postoperative day 2 from cystoscopy, left ureteroscopy, lithotripsy, stone basket extraction, and left ureteral stent placement. The patient was transferred out of the ICU yesterday and overall seems to be doing well. She denies any fevers, chills, had some urinary frequency with catheter in place. She feels like she has to go the bathroom even though the catheter is there. Catheter has been draining. She had a little over 900cc recorded since yesterday. She is tolerating oral intake and denies any other complaints this morning. OBJECTIVE: Vital Signs: Temperature 98.2, heart rate 99, blood pressure 109/59, oxygen saturation 99% on nasal cannula. General: No acute distress. Resting comfortably in bed. Alert and oriented x3. Respiratory: Good respiratory effort. Abdomen: Soft, nontender, nondistended. Genitourinary: No suprapubic tenderness. No CVA tenderness. Urethral catheter in place with pink urinary output without clots. LABORATORY DATA: White blood cell count 6.6, hemoglobulin 8.6, hematocrit 28.9, platelets 354, sodium 145, potassium, 4.0, chloride 109, bicarbonate 24, BUN 17, creatinine 2.3, glucose 91. ASSESSMENT AND PLAN: Mrs. Garcia is a 74-year-old with chronic obstructive pulmonary disease, congestive heart failure, nephrolithiasis, history of renal cell carcinoma status post nephrectomy, who presents in consultation regarding obstructive uropathy and obstructing left ureteral stone. She was taken to the operating room on Sunday for cystoscopy, left ureteroscopy, lithotripsy, and stone basket extraction. The patient's kidney function improved yesterday. She was transferred out of the ICU yesterday as well. We will continue to monitor. We plan to remove her Toney catheter this morning and encouraged her to be ambulate. We will continue to monitor urinary output and renal function. Please call with questions or concerns. cc: MD NOELLE White
[2019-12-29 08:05] LABS: BASO# 0.03 X1000 (0.0-0.2); BASO% 0.5 % (0.0-0.8); EOS# 0.61 X1000 (0.0-0.7); EOS% 9.2 % (0.0-10.0); HEMATOCRIT 28.9 % (37.0-47.0); HEMOGLOBIN 8.6 g/dL (12.0-16.0); IMM GRAN# 0.02 X1000 (0.0-0.04); IMM GRAN% 0.3 % (0.0-0.5); LYMPH# 1.86 X1000 (1.2-3.4); LYMPH% 27.9 % (20.5-51.1); MCH 29.1 PG (27-31); MCHC 29.8 g/dL (33-37); MCV 97.6 FL (81-99); MONO# 0.85 X1000 (0.11-0.59); MONO% 12.8 % (1.7-9.3); MPV 9.2 FL (7.4-10.4); NEUT# 3.29 X1000 (1.4-6.5); NEUT% 49.3 % (42.2-75.2); PLT 354 X1000 (130-400); RBC 2.96 XMIL (4.2-5.4); RDW 14.5 % (11.5-14.5); WBC 6.66 X1000 (4.8-10.8)
[2019-12-29 08:06] LABS: CALCIUM 8.9 mg/dL (8.8-10.2); CREATININE 2.3 mg/dL (0.5-0.9)
[2019-12-29] MEDS: ZOLOFT PO SCH (09:55)
[2019-12-29] MEDS: PROAMATINE PO SCH (09:55)
[2019-12-29] MEDS: MIRALAX PO SCH (10:02)
[2019-12-29] MEDS: PREDNISONE PO SCH (13:09)
--- NOTE | 2019-12-29 13:55 | PROVIDER PROGRESS NOTE ---
Progress Note Chief complaint: I had a stone they had to go in and get out. HPI: Ms. Garcia is 74-year-old white female known to our service. She has a past medical history of right sided renal cell carcinoma status post nephrectomy with resultant chronic kidney disease stage four and a baseline creatinine of 1.8 to 2.1. Other comorbidities include COPD with multiple exacerbations, hypotension, and congestive heart failure. She was hospitalized at [facility] November 02 for COPD exacerbation. When she discharged she went to a SNF and was out Dec 04. 3 d ays after being home, she arrived to [facility] for another COPD exacerbation. While there she began having hematuria with Left side pain. She was placed on hospice and continued to have hematuria and left sided pain. Family was upset that she was not being evaluated and took her off of Hospice when she became anuric on Sunday. She denies any shortness of breath, chest pain, loss of appetite, or n/v. She does admit to decreased appetite and weakness. She contacted our office and we had her undergo ct scan which demonstrated impacted ureteral stone. We directed her to the ER. 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 Past surgical history: back surgery, parathyroidectomy, tubal ligation, right nephrectomy in 2015, cardiac ablation 1994. Family history: Mother had stroke and MS, father had MS and lung cancer. Social history: Lives with sister and daughter. Denies any alcohol, tobacco, or illicit drug use. Allergies: no known medications. Home medications: albuterol sulfate, Xanax, levothyroxine, midodrine HCl, zoloft, carafate Review of systems: all pertinent positives listed in the above HPI. 14 pt review of systems complete. All pertinent positives listed in the above HPI. Physical exam: temperature 97.7, pulse 90, respiration 16, blood pressure 134/73, the two sat 99% on 3 L nasal cannula. HEENT: Normocephalic, atraumatic. Moist mucous membranes. Pupils equal and reactive. Trachea midline. Skin: warm and dry, multiple bruises. Dressing to left hand. Neck: supple, No JVD observed. Cardiovascular: S1S2, regular rate and rhythm, no murmurs or gallops. Respiratory: Expiratory wheezes bilaterally anteriorly. Abdomen: soft, nontender, nondistended p. Bowel sounds active. : non inspected: Super pubic was pulled today and she has peed today. Extremities: no clubbing, cyanosis, or edema noted. Labs: WBC 6.66, hemoglobin 8.6, hematocrit 28.9, platelet count 354, sodium 145, potassium 4.0, chloride 109, carbon dioxide 24, anion gap 12, BUN 17, creatinine 2.3. Intake 1976, output 3450. Imaging: echocardiogram shows estimated ejection fraction of 60%. Abdominal ultrasound impression mass in the pancreatic head, right and affect me, fatty infiltration of the liver. Assessment and plan: Chronic kidney disease stage 4 status post left nephrectomy. She is at her baseline Creatinine. No changes. Hematuria/impacted ureteral stone/HARRISON. Resolved. Suprapubic catheter removed today and has voided since. Blood pressure. In target. Anemia. In target. Electrolytes in as a base balance. In target. Ambulation. Order PT. Medication review. No changes.
[2019-12-29] MEDS: SODIUM CHLORIDE 0.9% INJ SCH (15:26)
[2019-12-29] MEDS: D5 1/2 NS 1,000 ML IV SCH (15:26)
--- NOTE | 2019-12-29 17:04 | GASTROENTEROLOGY PROGRESS NOTE ---
DATE: 12/29/2019 SUBJECTIVE: Ms. Garcia is a 74-year-old female who was resting in bed. The patient is on a renal diet and is able to tolerate her diet well. The patient had 3 bowel movements today. OBJECTIVE: Vital Signs: Temperature 97.6, pulse 92, respirations 14, blood pressure 132/76, oxygen saturation 95% on 2 L nasal cannula. Her weight is 146 pounds. BMI is 24.3 kg/m2. General: She is alert and oriented x3 in no acute distress. HEENT: Pale conjunctivae. No icterus. PERRL. Neck: Supple. Lungs: Clear to auscultation. Cardiovascular: Patient is tachycardic. Abdomen: Soft. Generalized tenderness. Active bowel sounds in all four quadrants. Extremities: No clubbing, no cyanosis, no edema. Pedal pulses 2+ present bilaterally. Neurologic: She is alert and oriented x3. LABORATORY DATA: WBC 6.66, RBC 2.96, hemoglobin is 8.6, hematocrit is 28.9, platelet count of 354. Sodium 145, potassium 4.0, chloride 109, carbon dioxide 24, anion gap 12, BUN 17, creatinine 2.3, glucose 91, calcium is 8.9. IMPRESSION AND PLAN: Pancreatic mass seen on USG abdomen and CT scan. Kidney stones COPD Anemia Constipation h/o Kidney cancer s/p resection and patient has solitary kidney chronic renal insufficiency PLAN: Ms. Garcia is a 74-year-old female with the history of renal cell carcinoma.. GI is following her for a pancreatic mass. The patient's hemoglobin and hematocrit are 8.6 and 28.9. The patient may need an outpatient endoscopic ultrasound either at [facility] or [facility] with Dr. Bejarano. We will continue patient's IV fluids normal saline at 100 mL per hour, and she is on a bowel regimen, MiraLAX 17 gm once daily. She is receiving PPI, Pepcid 20 mg twice a day. Awaiting the results of her CA 19-9 tumor marker. We will continue to monitor the patient and follow the plan of care per PCP. This plan was discussed with Dr. Yi. Please call us for any further questions or concerns. Dictated by THOMAS Carrero for Phillip Yi MD cc: Phillip Yi MD I have seen and examined the patient myself and I agree with the above plan of care. Please call us with any questions or concerns. NOELLE
--- NOTE | 2019-12-29 19:03 | PROGRESS NOTE ---
DATE: 12/29/2019 INTERVAL HISTORY: The patient doing well since neurologic procedure. Kidney function continues to improve. Discussed with patient's family the possibility of restarting her on anticoagulation. They wished to defer that for now. Also clarified with patient's family that she does not plan on returning to hospice care on discharge. No new complaints. No acute events overnight. REVIEW OF SYSTEMS: Twelve point review of systems negative except as per interval history. LABS: WBC 6.6, hemoglobin 8.6, hematocrit 28.9, platelets 354,000. Sodium 145, potassium 4, BUN 17, creatinine 2.3, glucose 91. VITALS: Temperature 97.6 degrees, pulse 92, respirations 14, blood pressure 133/76, O2 saturation 95% on 2 L by nasal cannula. PHYSICAL EXAMINATION: General: No acute distress. Vitals: As above. Chronically ill appearing. HEENT: Normocephalic, atraumatic. Moist mucous membranes. Cardiovascular: Regular rate and rhythm. No murmurs noted. Pulmonary: Clear to auscultation bilaterally. No wheezing, rales, or rhonchi. Abdomen: Soft, nontender, nondistended. Bowel sounds positive. Extremities: Peripheral pulses intact. No clubbing or cyanosis. Neurologic: Cranial nerves grossly intact. No focal deficit seen. Psychiatric: Normal mood and affect. Awake, alert, oriented x3. ASSESSMENT AND PLAN: 1. Acute kidney injury, single kidney, obstructing stone. Patient is status post procedure by Urology for stone removal. Kidney function has been improving since then. Not quite to baseline, but getting close. Continue supportive care and if patient's kidney function continues to improve, then we will hopefully be able to discharge tomorrow. 2. Likely pancreatic mass. Suspicious for cancer. New diagnosis to the patient. CA-99 pending. Gastroenterology recommending likely endoscopic ultrasound as an outpatient with [facility] based on its higher yield in this situation with the mass that it does not appear to be involving the ducts. 3. History of provoked right internal jugular thrombus and left arm superficial thrombus. Had initially planned on restarting anticoagulation today, but discussed with patient and family, as she will likely need an additional procedure to diagnosis this mass in her pancreas in the near future. They wish to defer anticoagulation for now. 4. Fatty liver noted. 5. Hyponatremia. Improved. Monitor.
[2019-12-29] MEDS: ROCEPHIN 1 GM in NS 50 ML IV SCH (21:33)
[2019-12-29] MEDS: XANAX PO SCH (21:34)
[2019-12-30] MEDS: PEPCID IV SCH ×2 (02:04→17:20)
[2019-12-30] MEDS: DUONEB (A & A) INH SCH ×6 (03:42→23:05)
[2019-12-30] MEDS: SYNTHROID PO SCH ×2 (05:58→06:03)
[2019-12-30] MEDS: ZOLOFT PO SCH (09:19)
[2019-12-30] MEDS: PROAMATINE PO SCH (09:19)
[2019-12-30] MEDS: MIRALAX PO SCH (09:19)
[2019-12-30] MEDS: PREDNISONE PO SCH (09:19)
[2019-12-30] MEDS: LEVSIN PO SCH ×3 (09:24→17:15)
--- NOTE | 2019-12-30 09:55 | PROGRESS NOTE ---
DATE: 12/30/2019 SUBJECTIVE: The patient's catheter was removed yesterday and the patient has been able to void. She has occasional frequency and urgency to urinate but denies any significant hematuria. She remains afebrile with stable vital signs. Overall, she feels like she is improving. OBJECTIVE: Vital signs: Temperature 98 degrees, heart rate 109, blood pressure 131/66, oxygen saturation 100% on 2 L nasal cannula. General: No acute distress. Resting comfortably in bed. Alert and oriented x3. Respiratory: Good respiratory effort with slight wheezing in the bases. Abdomen: Soft, nontender, nondistended. Genitourinary: No suprapubic tenderness. No CVA tenderness. LABORATORY DATA: Creatinine yesterday was 2.3 from 3.8 prior. White blood cell count was 6.6 with hemoglobin and hematocrit 8.6 and 28.9. ASSESSMENT AND PLAN: Ms. Garcia is a 74-year-old with chronic obstructive pulmonary disease, congestive heart failure, history of nephrolithiasis, history of renal cell carcinoma status post nephrectomy, who presented in consultation regarding obstructive uropathy and obstructing left ureteral stone. She was taken the operating room and has undergone removal of her stone and overall seems to be doing better. Her renal function yesterday was 2.3 from 3.8 prior, baseline is around 1.8. Clinically, I think patient is improving and likely could go home when cleared by hospitalist. We will follow up a.m. labs. Encouraged her to continue with p.o. intake as tolerated. She will need her ureteral stent removed in the office. We will plan to do this in approximately 1 week. We will continue to monitor while inpatient. We can try her on some bladder spasm medications due to frequency of urination. We will continue to monitor. Please call with questions or concerns. cc: Moe Vargas MD [facility]. [facility] HOSPITALStephayn
[2019-12-30] MEDS: D5 1/2 NS 1,000 ML IV SCH (10:55)
[2019-12-30 11:41] LABS: BASO# 0.02 X1000 (0.0-0.2); BASO% 0.3 % (0.0-0.8); EOS# 0.05 X1000 (0.0-0.7); EOS% 0.7 % (0.0-10.0); HEMATOCRIT 30.7 % (37.0-47.0); HEMOGLOBIN 9.1 g/dL (12.0-16.0); IMM GRAN# 0.03 X1000 (0.0-0.04); IMM GRAN% 0.4 % (0.0-0.5); LYMPH% 22.8 % (20.5-51.1); MCH 29.1 PG (27-31); MCHC 29.6 g/dL (33-37); MCV 98.1 FL (81-99); MONO# 0.67 X1000 (0.11-0.59); MONO% 9.5 % (1.7-9.3); MPV 9.6 FL (7.4-10.4); NEUT# 4.65 X1000 (1.4-6.5); NEUT% 66.3 % (42.2-75.2); PLT 338 X1000 (130-400); RBC 3.13 XMIL (4.2-5.4); RDW 14.1 % (11.5-14.5); WBC 7.02 X1000 (4.8-10.8)
[2019-12-30 12:27] LABS: CALCIUM 9.7 mg/dL (8.8-10.2); CREATININE 1.7 mg/dL (0.5-0.9); POTASSIUM 4.1 mmol/L (3.5-5.1)
--- NOTE | 2019-12-30 12:34 | PROVIDER PROGRESS NOTE ---
Progress Note Subjective: She voices bladder spasms and but is having less hematuria. Denies any uremic complaints. Objective: temperature 98.0, pulse 91, respirations 16, blood pressure 130/68, 02 sat 99% on 2 L nasal cannula. General: Elderly white female lying in bed in no acute distress. HEENT: Normocephalic, atraumatic. Moist mucous membranes. Pupils equal and reactive. Trachea midline. Skin: warm and dry, multiple bruises. Neck: supple, 6cm JVD with hepatojugular reflux. Cardiovascular: S1S2S3, regular rate and rhythm, no murmurs or gallops. Respiratory: Expiratory wheezes bilaterally anteriorly. Abdomen: soft, nontender, nondistended. Bowel sounds active. : non inspected Extremities: no clubbing, cyanosis, or edema noted. Neurological: alert and oriented to person, place, and time. Labs: Input 360, with unmeasured voids. Impression: Acute on Chronic kidney disease stage 4 status post left nephrectomy. Resolved. She is at her baseline Creatinine now. No changes. Hematuria/ impacted ureteral stone. Resolved. Blood pressure. In target. Anemia. In target on last labs. Electrolytes in as a base balance. In target on last labs.
--- NOTE | 2019-12-30 15:46 | GASTROENTEROLOGY PROGRESS NOTE ---
DATE: 12/30/2019 SUBJECTIVE: Ms. Garcia is a 74-year-old female resting in bed. The patient has complained of mild abdominal tenderness but has denied any nausea, vomiting. The patient is on a renal diet and she is able to tolerate her diet well. She has been having positive bowel movements. She had 5 bowel movements yesterday, but has denied any today. OBJECTIVE: Vital Signs: Temperature 98.4 degrees, pulse is 100, respirations 18, blood pressure 133/76, oxygen saturation 97% on 2 L nasal cannula. The patient's weight is 151 pounds. BMI is 25.1 kg/m2. General: She is alert, oriented x3, and in no acute distress. HEENT: Pale conjunctivae. No icterus. PERRL. Neck: Supple. Lungs: Clear to auscultation. Cardiovascular: The patient is tachycardic. Abdomen: Soft, obese, generalized tenderness. Active bowel sounds in all 4 quadrants. Extremities: No clubbing. No edema. Pedal pulses 2+ present bilaterally. Neurologic: She is alert, oriented x3. LABS: WBCs are 77.02, RBC 3.13, hemoglobin is 9.1, hematocrit is 30.7, platelet count is 338,000. Sodium is 145, potassium is 4.1, chloride is 107, carbon dioxide is 24, anion gap is 14, BUN is 16, creatinine is 1.7, glucose is 109, calcium is 9.7. IMPRESSION AND PLAN: Pancreatic mass Kidney stones COPD Anemia Constipation H/o kidney cancer s/p resection with solitary kidney Chronic renal insufficiency PLAN: is a 74-year-old female with a history of renal cell carcinoma. GI is following her for her pancreatic mass. The patient's CA-19-9 tumor marker results show 62, which is elevated. The patient's hemoglobin and hematocrit is slightly trending upwards. It is 9.1 and 30.7. We recommend the patient to get an outpatient endoscopic ultrasound done either at [facility] or [facility]. The patient is currently on fluids D5 half-normal saline at 60 mL/h. Her constipation seems to be resolved. She had 5 bowel movements yesterday, she is currently on a bowel regimen, MiraLAX 17 g daily. The patient is also receiving antibiotic Rocephin and PPI twice a day. We will continue to monitor the patient and follow the plan of care per PCP. This plan was discussed with Dr. Camejo. Please call us for any further questions or concerns. Dictated by THOMAS Carrero for Toribio Camejo MD MTDD
--- NOTE | 2019-12-30 19:00 | PROGRESS NOTE ---
DATE: 12/30/2019 INTERVAL HISTORY: Patient approximately stable. Urine output remains reasonable. No new complaints. No acute events overnight. REVIEW OF SYSTEMS: Twelve point review of systems negative except as per interval history. LABS: WBC 7.0, hemoglobin 9.1, hematocrit 30.7, platelets 338,000. Sodium 145, potassium 4.1, BUN 16, creatinine 1.7, glucose 109. VITALS: T-max 98 degrees, pulse 106, respirations 16, blood pressure 137/73. O2 saturation 100% on 2 L by nasal cannula next. PHYSICAL EXAMINATION: General: No acute distress. Chronically ill appearing. HEENT: Normocephalic, atraumatic. Moist mucous membranes. No cervical adenopathy. Cardiovascular: Regular rate and rhythm at the time my exam. No murmurs noted. Pulmonary: Clear to auscultation bilaterally. No wheezing, rales, or rhonchi. Abdomen: Soft, nontender, nondistended. Bowel sounds positive. Extremities: Peripheral pulses intact. No clubbing or cyanosis. Neurologic: Cranial nerves grossly intact. Mild global weakness but no focal deficits identified. Psychiatric: Normal mood and affect. Awake, alert, oriented x3. ASSESSMENT AND PLAN: 1. Acute kidney injury, single kidney, obstructing stone. The patient is status post procedure by Urology for stone removal. Kidney function still consistently improving since then and is now approximately at her baseline CKD 3. 2. Likely pancreatic mass. Suspicion is for cancer. New diagnosis to the patient. CA-19-9 pending. Gastroenterology recommending outpatient endoscopic ultrasound for biopsy as the mass does not appear to be impinging on the duct work and therefore regular ERCP is likely to be low yield. 3. History of provoked right internal jugular thrombus and left arm superficial thrombus. Initial plan was to reinitiate anticoagulation, but after discussion with patient and family, they wish to defer that for now until patient has all procedures she may need. Discussed the potential risks of this and they are aware and still wished to defer anticoagulation. 4. Fatty liver noted. 5. Hyponatremia, resolved. Monitor labs. 6. Disposition. The patient previously at hospice but denies wanting to go back on hospice. Trying to obtain DME equipment for patient and looking into other options. If the patient's kidney function remains stable, then can likely discharge once arrangements have been made.
[2019-12-30] MEDS: XANAX PO SCH (21:25)
[2019-12-30] MEDS: ROCEPHIN 1 GM in NS 50 ML IV SCH (21:26)
[2019-12-31] MEDS: PEPCID IV SCH (03:20)
[2019-12-31] MEDS: SODIUM CHLORIDE 0.9% INJ SCH (03:20)
[2019-12-31] MEDS: D5 1/2 NS 1,000 ML IV SCH (03:21)
[2019-12-31] MEDS: DUONEB (A & A) INH SCH ×4 (03:52→16:01)
[2019-12-31] MEDS: SYNTHROID PO SCH (06:09)
[2019-12-31 07:27] LABS: EOS# 0.05 X1000 (0.0-0.7); EOS% 0.7 % (0.0-10.0); HEMATOCRIT 27.7 % (37.0-47.0); IMM GRAN# 0.02 X1000 (0.0-0.04); IMM GRAN% 0.3 % (0.0-0.5); LYMPH# 1.56 X1000 (1.2-3.4); LYMPH% 21.7 % (20.5-51.1); MCH 28.1 PG (27-31); MCHC 28.9 g/dL (33-37); MCV 97.2 FL (81-99); MONO# 0.73 X1000 (0.11-0.59); MONO% 10.2 % (1.7-9.3); MPV 9.3 FL (7.4-10.4); NEUT# 4.83 X1000 (1.4-6.5); NEUT% 67.1 % (42.2-75.2); PLT 328 X1000 (130-400); RBC 2.85 XMIL (4.2-5.4); RDW 13.9 % (11.5-14.5); WBC 7.19 X1000 (4.8-10.8)
[2019-12-31 08:07] LABS: LYMPHS 22 % (21-51); SEGS 76 % (42-75)
[2019-12-31 08:20] LABS: CALCIUM 9.2 mg/dL (8.8-10.2); CREATININE 1.7 mg/dL (0.5-0.9); POTASSIUM 3.9 mmol/L (3.5-5.1)
[2019-12-31] MEDS: MIRALAX PO SCH (09:11)
[2019-12-31] MEDS: ZOLOFT PO SCH (09:14)
[2019-12-31] MEDS: PROAMATINE PO SCH (09:14)
[2019-12-31] MEDS: PREDNISONE PO SCH (09:14)
[2019-12-31] MEDS: LEVSIN PO SCH (09:14)
[2019-12-31] MEDS ORDERED: LEVSIN-SL PO SCH (13:45)
[2019-12-31 15:24] VITALS: BP 136/78
--- NOTE | 2019-12-31 16:25 | PROGRESS NOTE ---
DATE: 12/31/2019 SUBJECTIVE: I have seen and examined Ms. Garcia today. Ms. Garcia refers to be doing well. No new acute problems. She continues to be on supplemental oxygen. OBJECTIVE: Vital signs: Blood pressure is 126/78, pulse of 104, respirations 20, temperature is 98.6 degrees. The patient is saturating 96%. General: Mr. Garcia is a 76-year-old female. She is in bed, on supplemental oxygen. HEENT: Mucosa is pink and moist. Anicteric. Acyanotic. Neck: Supple. Chest: Air entry is bilaterally reduced. There is still some end expiratory wheezing and some crackles in the posterior lung aguillon. Cardiovascular: Regular rate and rhythm. Abdomen: Soft, nontender. Bowel sounds are present. Extremities: No pedal edema. Distal pulses present. 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 Generalized weakness, but no focal deficit. LABORATORY DATA: WBC 7.19, hemoglobin is 8.0, platelet count of 328,000. Chemistry is also reviewed. Creatinine is 1.7. Ultrasound of the abdomen showed mass in the pancreatic head. There is also a right nephrectomy, fatty liver disease. ASSESSMENT: 1. Acute on chronic kidney disease secondary to obstructive uropathy. The patient is status post urological intervention with double-J stent placement in the left ureter. Creatinine continues to be trending down. 2. History of right renal cell carcinoma, status post right nephrectomy. 3. Pancreatic mass noted on imaging. Patient advised to follow up with GI. She has actually expressed the desire to follow up at [facility]. 4. Fatty liver disease, noted. 5. History of congestive heart failure with ejection fraction of 25 to 30% documented in patient's records from October of last year from [facility]. She continues to be on medications. 6. Chronic hypoxemia secondary to chronic obstructive pulmonary disease and congestive heart failure. 7. Hypothyroidism. Patient continues to be on levothyroxine. 8. Right side neck jugular vein thrombosis. Patient is on anticoagulant. PLAN: So in general, Ms. Garcia is clinically stable and we think she can be discharged. She has already undergone placement of a double-J stent and she is stable. She does have symptomatic CHF as well as some COPD which she requires the head of her bed to be elevated more than 30 degrees most of the time and because of that, we recommend that she get a hospital bed. Ms. Garcia also has limited mobility within the home and cannot be assisted by means of cane, walker, or rolling walker, so we recommend that she get a wheelchair. cc: Xavi Mooney MD
--- NOTE | 2020-01-01 22:29 | DISCHARGE SUMMARY ---
ADMISSION DATE: 12/26/2019 DISCHARGE DATE: 12/31/2019 DISPOSITION: Home. FOLLOW-UP: Will be with: 1. Dr. Howell. 2. Dr. Yi. 3. Dr. Vargas. 4. Dr. Helton. CONSULTATION DURING THIS ADMISSION: 1. Urology was consulted. The patient was seen by Dr. Vargas. 2. Nephrology was consulted. The patient was seen by Dr. Helton. 3. GI was consulted. The patient was seen by Dr. Yi. INVASIVE PROCEDURES DONE DURING THIS ADMISSION: 1. Cystoscopy, left ureteroscopy with laser lithotripsies. 2. Stone basket extraction. 3. Left ureteral stent placement, were all done by Dr. Vargas on 12/27/2019. ADMISSION DIAGNOSES: 1. Acute kidney injury. 2. History of cardiac arrest in congestive heart failure. 3. Reported right-sided neck jugular vein deep vein thrombosis. DISCHARGE DIAGNOSES: 1. Acute on chronic kidney disease secondary to obstructive uropathy. 2. Remote history of right renal cell carcinoma status post right nephrectomy. 3. Pancreatic mass noted on imaging studies of unclear a histology. 4. Fatty liver disease. 5. Congestive heart failure, ejection fraction of 25 to 30 percent. The patient is currently euvolemic. 6. Chronic hypoxemia secondary to chronic obstructive pulmonary disease and congestive heart failure. Patient is on home supplemental oxygen. 7. Hypothyroidism. 8. Right-sided neck jugular vein thrombosis. MEDICATIONS: 1. Levothyroxine 75 mcg p.o. daily. 2. Alprazolam 0.25 mg p.o. at bedtime. 3. Midodrine 2.5 p.o. daily. 4. Sertraline 2.5 mg p.o. daily. 5. MiraLAX. PRESENTING COMPLAINT: Hematuria, left lower quadrant pain. HISTORY OF PRESENTING COMPLAINT: Ms. Garcia is a 74-year-old female with multiple comorbidities who presented to the emergency room because of hematuria and right flank pain. Patient was evaluated and was subsequently found to be in renal failure. Imaging studies were ordered including initially ultrasound of the abdomen, which showed some pancreatic mass. A renal CT scan, which was done on the did show a 1.6 mm stone in the upper to mid left ureter with mild hydronephrosis. Urology was consulted patient was seen by Dr. Vargas. A decision was made to intervene. The patient underwent cystoscopy with ureteroscopy, stone retrieval and deployment of double-J stent. This was successfully done. Subsequently the patient's creatinine continues to improve. On admission, Ms. Garcia had a creatinine of 5.8, which went up to 6.3. At the time of discharge, it was 1.7. She was also started on broad-spectrum IV antibiotics. However, urine culture came back negative. Ms. Garcia, after the procedure, became very adamant that she wanted to be discharged. She was notified about the pancreatic mass, which has become apparent on both the CT scan and ultrasound, but she said she did not want anything to be done to it while she was in [facility] and that she would follow up with GI in [facility], which I think is a reasonable approach since we do not do EUS with possible biopsy of the pancreas. Ms. Garcia is therefore advised to follow up with the [facility] accordingly. She will also follow up with the subspecialties that have seen her during the hospital course. TIME SPENT: The time spent for discharge is 35 minutes. cc: MD Catrachito Levy MD Manish Arora, MD Reginald D. Gladish, MD Patrick Guthrie, MD
--- NOTE | 2020-01-02 13:13 | Extremity Venous Study ---
PROCEDURE NAME: Venous U/S Bilateral Arms - 12/26/2019 DATE: 12/27/2019. REFERRING PHYSICIAN: Dr. Jones READING PHYSICIAN: Dr. David Bhandari. PLEATER HAND: Roverto. 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 FINDINGS: The right internal jugular subclavian axillary brachial basilic and cephalic veins were imaged as well as the left internal jugular, subclavian, axillary, brachial, cephalic and basilic veins. They are compressible and patent without thrombus. INTERPRETATION: No DVT or SVT in either upper extremity. cc: MD Viktor Gomez MD
== END 2019-12-31 17:37 | disposition home or self-care (01) | DRG 660 ==
LOC: ED 17:39 → SUATTDRO 23:51 → 1N 23:51 → ICU 12-27 11:08 → 4N 12-28 12:26
PROVIDERS: ATTEND Internal Medicine